=== PATIENT | female | born 1990 | race Caucasian/White ===

== ENCOUNTER 2019-05-04 21:32 | Emergency (ER) | payer OTHER, MEDICAID ==
[~2019-05-04] VITALS: Ht 165.1 cm; Wt 106.6 kg
[2019-05-04] MEDS ORDERED: ADDERALL 20 MG20 MG PO (21:52)
[2019-05-04] MEDS ORDERED: ACYCLOVIR 400400 MG PO (21:52)
[2019-05-04] MEDS ORDERED: TRAZODONE HCL50 MG PO (21:52)
[2019-05-04] MEDS ORDERED: OGESTREL1 EACH PO (21:52)
[2019-05-04] MEDS ORDERED: LOPRESSOR50 PO (21:53)
[2019-05-04] MEDS ORDERED: BUSPIRONE HCL10 MG PO (21:53)
[2019-05-04] MEDS ORDERED: ADDERALL XR 3030 MG PO (21:53)
[2019-05-04] MEDS ORDERED: LEXAPRO20 MG PO (21:53)
[2019-05-04 22:49] LABS: URINE BILIRUBIN NEGATIVE (Negative); URINE BLOOD 2+ (Negative); URINE CLARITY CLEAR; URINE COLOR STRAW; URINE GLUCOSE-RANDOM NEGATIVE (Negative); URINE KETONES NEGATIVE (Negative); URINE LEUKOCYTES-REFLEX NEGATIVE (Negative); URINE NITRITE-REFLEX NEGATIVE (Negative); URINE PROTEIN NEGATIVE (Negative); URINE SPECIFIC GRAVITY <= 1.005 (1.005-1.030); URINE UROBILINOGEN 0.2 E.U./dl (0.2-1.0)
[2019-05-04 22:54] LABS: MUCUS None Seen strn/LPF (None Seen); SQUAMOUS 0-3 Few /LPF (0-3)
[2019-05-04 22:57] LABS: BACTERIA-REFLEX None Seen /HPF (None Seen); CASTS None Seen /LPF (None Seen); CRYSTALS None Seen /LPF (None Seen); URINE RBC 0-2 Rare /HPF (0-2); URINE WBC-REFLEX None Seen /HPF (0-5)
[2019-05-04 23:29] LABS: ABSOLUTE BASOPHILS 0.1 thou/uL (0.0-0.2); ABSOLUTE EOSINOPHILS 0.1 thou/uL (0.0-0.7); ABSOLUTE LYMPHOCYTES 3.3 thou/uL (0.8-5.3); ABSOLUTE MONOCYTES 0.8 thou/uL (0.0-1.2); ABSOLUTE NEUTROPHILS 4.4 thou/uL (1.6-8.1); BASOPHILS 1.2 %; HEMATOCRIT 41.9 % (37.0-47.0); HEMOGLOBIN 14.1 gm/dL (12.0-15.0); LYMPHOCYTES 37.7 %; MCH 28.9 pg (26.0-34.0); MCHC 33.6 g/dL (28.0-37.0); MCV 86.1 fL (80.0-100.0); MONOCYTES 9.2 %; MPV 6.6 fl. (7.2-11.1); NUCLEATED RBCS 0 /100WBC; PLATELET COUNT* 338 thou/uL (150-400); POLYS 50.9 %; RBC 4.87 mil/uL (4.20-5.00); RDW-CV 13.6 % (10.5-14.5); WBC 8.7 thou/uL (4.0-11.0)
[2019-05-04 23:37] LABS: CALCIUM 8.9 mg/dL (8.5-10.1); CREATININE 0.7 mg/dL (0.6-1.3); POTASSIUM 3.7 mmol/L (3.5-5.1)
[2019-05-04 23:42] LABS: ALBUMIN 3.4 g/dL (3.4-5.0); TOTAL BILIRUBIN 0.1 mg/dL (<0.1-1.0); TOTAL PROTEIN 7.4 g/dL (6.4-8.2)
[2019-05-05] MEDS ORDERED: BENTYL 20 MG TA20 M1 PO (00:19)
[2019-05-05] MEDS ORDERED: PRILOSEC OTC20 MG PO (00:19)
[2019-05-05] MEDS ORDERED: PROMETHAZINE HC25 M1 PO (00:19)
[2019-05-05 01:02] VITALS: BP 141/80
== END 2019-05-05 01:04 | disposition home or self-care (01) ==
LOC: M.ERS 21:32
PROVIDERS: Nurse Practitioner
DX: K44.9 Diaphragmatic hernia without obstruction or gangrene (principal); R19.7 Diarrhea, unspecified; F17.200 Nicotine dependence, unspecified, uncomplicated; G43.909 Migraine, unspecified, not intractable, without status migrainosus; F90.9 Attention-deficit hyperactivity disorder, unspecified type; F41.9 Anxiety disorder, unspecified; Z90.89 Acquired absence of other organs; Z88.2 Allergy status to sulfonamides

== ENCOUNTER 2020-04-07 22:19 | Emergency (ER) | payer OTHER ==
[~2020-04-07] VITALS: Ht 165.1 cm; Wt 95.3 kg
[~2020-04-07 22:19] MED LIST: ACYCLOVIR 400400 MG PO; ADDERALL 20 MG20 MG PO; ADDERALL XR 3030 MG PO; BENTYL 20 MG TA20 M1 PO; BUSPIRONE HCL10 MG PO; LEXAPRO20 MG PO; LOPRESSOR50 PO; OGESTREL1 EACH PO; PRILOSEC OTC20 MG PO; PROMETHAZINE HC25 M1 PO; TRAZODONE HCL50 MG PO
[2020-04-07] MEDS ORDERED: AUGMENTIN 875-1 EACH PO (23:30)
[2020-04-08 00:57] VITALS: BP 148/86
== END 2020-04-08 00:57 | disposition home or self-care (01) ==
LOC: M.ERS 22:19
DX: S91.115A Laceration without foreign body of left lesser toe(s) without damage to nail, initial encounter (principal); G43.909 Migraine, unspecified, not intractable, without status migrainosus; F90.9 Attention-deficit hyperactivity disorder, unspecified type; F41.9 Anxiety disorder, unspecified; Z90.49 Acquired absence of other specified parts of digestive tract; Z88.2 Allergy status to sulfonamides; W55.51XA Bitten by raccoon, initial encounter; Y93.89 Activity, other specified; Y92.89 Other specified places as the place of occurrence of the external cause; Y99.8 Other external cause status